=== PATIENT | male | born 1955 | race Two or more races ===

== ENCOUNTER 2018-10-28 09:13 | Outpatient (CLI) | payer OTHER | END 2018-10-28 09:44 | disposition home or self-care (01) | LOC: RAD 09:13 | DX: E03.8 Other specified hypothyroidism (principal); F17.210 Nicotine dependence, cigarettes, uncomplicated ==

== ENCOUNTER 2019-01-29 15:16 | Outpatient (CLI) | payer OTHER | END 2019-01-29 15:30 | disposition home or self-care (01) | LOC: RAD 15:16 | DX: J18.8 Other pneumonia, unspecified organism (principal) ==

== ENCOUNTER → 2020-10-09 | Outpatient (CLI) | payer OTHER | END | disposition home or self-care (01) | LOC: SONOGRAMA 07:18 | PROVIDERS: ATTEND Internal Medicine Adolescent Medicine | DX: E04.1 Nontoxic single thyroid nodule (principal) ==

== ENCOUNTER 2021-02-17 06:50 | Outpatient (CLI) | payer OTHER | END 2021-02-17 06:57 | disposition home or self-care (01) | LOC: LAB 06:50 | DX: R00.2 Palpitations (principal); I11.9 Hypertensive heart disease without heart failure; E11.9 Type 2 diabetes mellitus without complications; E78.2 Mixed hyperlipidemia ==

== ENCOUNTER 2021-04-08 10:17 | Outpatient (CLI) | payer OTHER | END 2021-04-08 10:25 | disposition home or self-care (01) | LOC: SONOGRAMA 10:17 | PROVIDERS: ATTEND Urology | DX: N40.0 Benign prostatic hyperplasia without lower urinary tract symptoms (principal) ==

== ENCOUNTER 2022-07-22 08:45 | Outpatient (CLI) | payer OTHER | END 2022-07-22 09:10 | disposition home or self-care (01) | LOC: RAD 08:45 | PROVIDERS: ATTEND Radiology Diagnostic Radiology | DX: R05.3 Chronic cough (principal) ==

== ENCOUNTER → 2022-07-23 07:44 | Outpatient (CLI) | payer OTHER | END | disposition home or self-care (01) | LOC: LAB 07:44 | PROVIDERS: ATTEND Internal Medicine | DX: R05.8 Other specified cough (principal) ==

== ENCOUNTER 2022-07-23 08:33 | Outpatient (CLI) | payer OTHER | END 2022-07-23 15:55 | disposition home or self-care (01) | LOC: TOM 08:33 | PROVIDERS: ATTEND Internal Medicine | DX: R05.8 Other specified cough (principal) ==

== ENCOUNTER → 2022-08-18 | Outpatient (CLI) | payer OTHER | END | disposition home or self-care (01) | LOC: TOM 13:01 | PROVIDERS: ATTEND Internal Medicine Cardiovascular Disease | DX: I63.9 Cerebral infarction, unspecified (principal) ==

== ENCOUNTER 2024-02-17 10:22 | Outpatient (CLI) | payer OTHER | END 2024-02-17 10:50 | disposition home or self-care (01) | LOC: RAD 10:22 | PROVIDERS: ATTEND Internal Medicine Cardiovascular Disease | DX: R91.1 Solitary pulmonary nodule (principal); R06.02 Shortness of breath ==

== ENCOUNTER → 2024-05-24 | Outpatient (CLI) | payer OTHER | END | disposition home or self-care (01) | LOC: RAD 08:24 | PROVIDERS: ATTEND Physical Medicine & Rehabilitation | DX: M25.562 Pain in left knee (principal); M25.572 Pain in left ankle and joints of left foot; M79.672 Pain in left foot ==

== ENCOUNTER → 2025-02-26 | Outpatient (CLI) | payer OTHER | END | disposition home or self-care (01) | LOC: RAD 15:52 | PROVIDERS: ATTEND Physical Medicine & Rehabilitation | DX: M25.561 Pain in right knee (principal); M25.562 Pain in left knee; R91.1 Solitary pulmonary nodule ==